=== PATIENT | female | born 1985 | race Caucasian/White ===

== ENCOUNTER → 2017-11-11 12:10 | Outpatient (CLI) | payer BC, SELFPAY ==
[2017-11-11 13:11] LABS: Absolute Lymphocyte Count 1.84 X10^3/ul (0.83-4.51); Absolute Neutrophil Count 4.4 X10^3/uL (2.0-7.7); Basophil# 0.02 X10^3/uL; Basophil% 0.3 % (0-1); Eosinophil# 0.27 X10^3/uL; Eosinophils% 3.9 % (0-5); Hematocrit 38.4 % (37-47); Hemoglobin 12.7 g/dl (12.0-15.0); Lymphocyte # 1.84 X10^3/ul (4.0); Lymphocyte % 26.4 % (19-41); Mean Corp Hgb Conc 33.1 g/gl (32-36); Mean Corpuscular Hgb 28.7 pg (27.0-32.0); Mean Corpuscular Volume 86.9 fL (81-99); Mean Platelet Vol. 8.9 fl (6.2-12.0); Monocyte# 0.45 X10^3/uL; Monocyte% 6.4 % (0-10); Neutrophil # 4.39 X10^3/uL (2.7-7.7); Neutrophil % 62.9 % (47-70); Platelet Count 310 K/mm3 (150-450); RBC Distribution Width CV 12.9 % (11.6-14.6); RBC Distribution Width SD 41.4 fl (35.1-43.9); Red Blood Count 4.42 M/mm3 (4.2-5.4)
[2017-11-11 13:12] LABS: POSITIVE COUNT NO; POSITIVE DIFFERENTIAL NO; POSITIVE MORPHOLOGY NO
[2017-11-11 13:40] LABS: Glucose Challenge Gest 1H 50g 98 mg/dL (70-140)
[2017-11-11 14:22] LABS: HIV - WCH Non-Reactive (Nonreactive)
[2017-11-11 21:12] LABS: Chlamydia Trachomatis by PCR Negative (Negative); Neisserai gonorrhoeae by PCR Negative (Negative); Probe Check PASS; Sample Adequacy Control PASS; Specimen Processing Control PASS
[2017-11-13 11:20] LABS: HEPATITIS B SURFACE AG Negative (Negative)
[2017-11-18 03:48] LABS: Rapid Plasmin Reagin (RPR) NONREACTIVE (NONREACTIVE)
== END ==
PROVIDERS: Visit Provider Obstetrics & Gynecology
DX: Z34.90 Encounter for supervision of normal pregnancy, unspecified, unspecified trimester (principal)
CPT/HCPCS: 36415; 82950; 85025; 86592; 86703; 86762; 86850; 86900; 87086; 87088; 87340; 87491; 87591

== ENCOUNTER → 2018-03-31 10:47 | Outpatient (CLI) | payer BC, SELFPAY ==
[2018-03-31 10:06] VITALS: BMI 40.3
[2018-03-31 11:25] LABS: Absolute Neutrophil Count 7.9 X10^3/uL (2.0-7.7); Basophil# 0.01 X10^3/uL; Basophil% 0.1 % (0-1); Eosinophil# 0.31 X10^3/uL; Hematocrit 36.3 % (37-47); Hemoglobin 12.4 g/dl (12.0-15.0); Lymphocyte % 15.3 % (19-41); Mean Corp Hgb Conc 34.2 g/gl (32-36); Mean Corpuscular Hgb 30.1 pg (27.0-32.0); Mean Corpuscular Volume 88.1 fL (81-99); Mean Platelet Vol. 9.4 fl (6.2-12.0); Monocyte# 0.62 X10^3/uL; Monocyte% 5.9 % (0-10); Neutrophil # 7.89 X10^3/uL (2.7-7.7); Neutrophil % 75.3 % (47-70); Platelet Count 253 K/mm3 (150-450); Red Blood Count 4.12 M/mm3 (4.2-5.4); White Blood Count 10.5 K/mm3 (4.4-11.0)
[2018-03-31 11:28] LABS: POSITIVE COUNT NO; POSITIVE DIFFERENTIAL NO; POSITIVE MORPHOLOGY NO
[2018-03-31 11:41] LABS: Glucose Challenge Gest 1H 50g 122 mg/dL (70-140)
== END ==
PROVIDERS: Referring Provider Obstetrics & Gynecology; Visit Provider Obstetrics & Gynecology
DX: Z34.90 Encounter for supervision of normal pregnancy, unspecified, unspecified trimester (principal)
CPT/HCPCS: 36415; 82950; 85025

== ENCOUNTER → 2018-05-19 17:04 | Outpatient (CLI) | payer BC, SELFPAY ==
[2018-05-19 08:59] VITALS: BMI 40.3
== END ==
PROVIDERS: Referring Provider Obstetrics & Gynecology; Visit Provider Obstetrics & Gynecology
DX: Z34.90 Encounter for supervision of normal pregnancy, unspecified, unspecified trimester (principal)
CPT/HCPCS: 87081

== ENCOUNTER 2018-06-06 15:55 | Outpatient (CLI) | payer BC, SELFPAY ==
[2018-06-01 13:01] VITALS: BMI 44.4
[2018-06-06 16:32] VITALS: BMI 45.0
--- NOTE | 2018-06-06 16:49 | OB.TRI.HP_ITS ---
- Problem List (1) Decreased movements, third trimester, fetus 1 Status: Acute History of Present Illness Date of Service: 06/06/18 Reason For Visit: DECREASED MOVEMENT History of Present Illness: decreased movement Allergies acetaminophen [From Percocet] Allergy (Verified 06/01/18 13:01) Other adhesive tape Allergy (Verified 06/01/18 13:01) Rash amoxicillin trihydrate [From Augmentin] Allergy (Verified 06/01/18 13:01) Nausea oxycodone HCl [From Percocet] Allergy (Verified 06/01/18 13:01) Other potassium clavulanate [From Augmentin] Allergy (Verified 06/01/18 13:01) Nausea - Pertinent Past Medical History Medical History: Past Medical History (Last Reviewed 06/01/18 @ 13:01 by Rosario Malik) History of [place] disease History of depression History of hypothyroidism History of insomnia History of irritable bowel syndrome Surgical History: Past Surgical History (Last Reviewed 06/01/18 @ 13:01 by Rosario Malik) Deviated septum History of surgical removal of pituitary gland NST - FHR Rate Baby A Baseline: 130 Variability:: Moderate Accelerations:: 15 x 15 Decelerations:: None NST Reactive:: Yes FHR Category:: Category I Uterine Activity:: no regular Impression/Plan decreased movement reactive nst dc home kick counts
== END 2018-06-06 17:10 | disposition home or self-care (01) ==
LOC: WPOUT 16:23 → WP 16:23
PROVIDERS: Referring Provider Obstetrics & Gynecology; Visit Provider Obstetrics & Gynecology
DX: O36.8130 Decreased fetal movements, third trimester, not applicable or unspecified (principal); Z3A.00 Weeks of gestation of pregnancy not specified
CPT/HCPCS: 59025; 59050; 99218; G0378

== ENCOUNTER 2018-06-14 22:34 | Inpatient (IN) | payer BC, SELFPAY ==
[2018-06-09 10:26] VITALS: BMI 45.1
[2018-06-14 20:18] VITALS: BMI 45.0
[2018-06-14] MEDS: 0.9% Saline Lock 10 ML Syringe IV (23:20)
[2018-06-14 23:47] LABS: Absolute Lymphocyte Count 2.47 X10^3/ul (0.83-4.51); Absolute Neutrophil Count 7.9 X10^3/uL (2.0-7.7); Basophil# 0.01 X10^3/uL; Basophil% 0.1 % (0-1); Eosinophil# 0.31 X10^3/uL; Eosinophils% 2.7 % (0-5); Hematocrit 38.6 % (37-47); Hemoglobin 13.2 g/dl (12.0-15.0); Lymphocyte # 2.47 X10^3/ul (4.0); Lymphocyte % 21.3 % (19-41); Mean Corp Hgb Conc 34.2 g/gl (32-36); Mean Corpuscular Hgb 29.5 pg (27.0-32.0); Mean Corpuscular Volume 86.2 fL (81-99); Mean Platelet Vol. 10.1 fl (6.2-12.0); Monocyte# 0.83 X10^3/uL; Monocyte% 7.2 % (0-10); Neutrophil # 7.92 X10^3/uL (2.7-7.7); Neutrophil % 68.3 % (47-70); Platelet Count 242 K/mm3 (150-450); RBC Distribution Width CV 13.1 % (11.6-14.6); RBC Distribution Width SD 41.2 fl (35.1-43.9); Red Blood Count 4.48 M/mm3 (4.2-5.4); White Blood Count 11.6 K/mm3 (4.4-11.0)
[2018-06-14 23:49] LABS: POSITIVE COUNT NO; POSITIVE DIFFERENTIAL NO; POSITIVE MORPHOLOGY NO
[2018-06-15] MEDS: Lactated Ringers 1,000 ML 50 ML IV ×2 (00:29→06:38)
--- NOTE | 2018-06-15 00:39 | HP.PCM_ITS ---
- Problem List (1) Active labor at term Status: Acute (2) Obesity affecting Status: Acute Qualifiers: Comment: 1 tm glucola nl, healthy weight gain encouraged, weekly nsts after 32 weeks growth us q 4 weeks (3) Status: Acute Qualifiers: Comment: genetic, carrier, and NTD screening declined. anatomy scan reviewed. 05/19/18 Lateral ventricles appeared mildly enlarged. Repeat in 1 week. FU US show left lateral ventricle is in the upper limits of normal (4) Supervision of normal Status: Acute Qualifiers: Comment: PRR MARGO 06/16/18 Girl PC Brenna Sara (5) Depression affecting , antepartum Status: Acute Comment: zoloft (6) Hypothyroid in , antepartum Status: Acute Comment: managed by endocrine History Date of Admission: 06/15/18 Final MARGO: 06/16/18 Gestational age: 39 Weeks and 6 Days History of this : This is a 33 year-old, , at 39 weeks gestational age presents IAL 4 cm dilated. she has had some bloody show but no lof admits good fm. she has had a complicated by obesity but otherwise normal. Medical History: Medical History (Last Reviewed 06/09/18 @ 10:26 by Neva Santamaria) History of [place] disease Z86.39 History of depression Z86.59 History of hypothyroidism Z86.39 History of insomnia Z87.898 History of irritable bowel syndrome Z87.19 Surgical History: Surgical History (Last Reviewed 06/09/18 @ 10:26 by Neva Santamaria) Deviated septum J34.2 History of surgical removal of pituitary gland E89.3 Allergies acetaminophen [From Percocet] Allergy (Verified 06/14/18 20:19) Other adhesive tape Allergy (Verified 06/14/18 20:19) Rash amoxicillin trihydrate [From Augmentin] Allergy (Verified 06/14/18 20:19) Nausea oxycodone HCl [From Percocet] Allergy (Verified 06/14/18 20:19) Other potassium clavulanate [From Augmentin] Allergy (Verified 06/14/18 20:19) Nausea Home Medications: Home Medications Vit No.130/Iron/Folic [ Vitamins] 1 ea PO DAILY 04/25/15 sertraline 100 mg tablet 100 mg PO QDAY 03/07/17 levothyroxine 75 mcg tablet 100 mcg PO DAILY tab 11/11/17 Smoking Status: Never smoker Alcohol: None Number of Fetus(es): 1 Heart Tracin moderate variability reactive no decelerations category I tracing, then baseline change to 165-170 moderate variability cat II Temelec: regular History Past Pregnancies: Past Pregnancies previous term uncomplicated Labs: Mom's Labs & Results 06/14/18 06/14/18 23:20 23:20 WBC 11.6 H RBC 4.48 Hgb 13.2 Hct 38.6 MCV 86.2 MCH 29.5 MCHC 34.2 RDW 13.1 RDW Differential 41.2 Plt Count 242 MPV 10.1 Immature Gran % (Auto) 0.400 Neut % (Auto) 68.3 Lymph % (Auto) 21.3 Coal % (Auto) 7.2 Eos % (Auto) 2.7 Baso % (Auto) 0.1 Absolute Neuts (auto) 7.9 H Absolute Lymphs (auto) 2.47 Total Counted Not Reportable Blood Type Pending Antibody Screen Pending Course Did the patient receive Yes care? Labs RH: POSITIVE RPR/VDRL/Syphilis Nonreactive Rubella status Immune HbSAg Negative Date Done: 11/11/17 Chlamydia Negative HIV/AIDS Non-Reactive Group B Strep: Negative Current Obstetrical History Gestational Diabetes No Incompetent Cervix No Infertility No IUGR No Macrosomia No Hypertension/Pre-eclampsia No Placenta Previa/Abruption No PTL/PROM No Uterine anomaly No Oligohydramnios No Polyhydramnios No Multiple gestation No Past Medical History Asthma No Diabetes No Hypertension No Heart disease No Mitral valve prolapse No Neurologic/Seizure disorder/ Yes: hx of migraines Migraines Kidney disease Yes: hx of kidney stones Liver disease No Varicosities No Clotting disorders/Hx of DVT No Thyroid Dysfunction Yes: hypothroid, on synthroid Other medical diseases Yes: cushings in remission, pituitary adenoma excision in 2009 Psychiatric disorders Yes: depression and anxiety Major trauma No Abnormal PAP smear No Sleep apnea No Mammogram in the last 2 years No Enter DETAILS of medical IBS history Medications Taken During Reason for taking medication [ taken until 18 weeks for nausea zofran] Social History Marital Status: Alleged father De Armijo Hx Smoking No Smoking Status Never smoker How long have you used n/a substances (years)? What date/time did you last n/a use any of the above? Have you had any previous n/a inpatient or outpatient treatment Expected Infant Delivery Method: Spontaneous Vaginal Review of Systems Constitutional: Denies: Fever, Malaise Eyes: Denies: Blurred vision, Vision Change HEENT: Denies: Head Aches, Visual Changes Cardiovascular: Denies: Chest Pain, Palpitations Respiratory: Denies: Cough, Shortness of Breath, Wheezing Gastrointestinal: Denies: Abdominal Pain, Diarrhea, Nausea, Vomiting Genitourinary: Denies: Dysuria, Hematuria Musculoskeletal: Denies: Joint Pain, Muscle pain Skin: Denies: Lesions, Rash Neurological: Denies: Blurred vision, Focal weakness, Headaches Psychiatric: Denies: Anxiety, Depression Endocrine: Denies: Heat/ Cold Intolerance Hematologic/ Lymphatic: Denies: Easy Bruising, Easy Bleeding Physical Exam General: Alert, Cooperative, No apparent distress HEENT: Atraumatic, Normocephalic. Negative for: Thyromegaly, Lymphadenopathy Cardiovascular: Regular rate Lungs: Normal air movement Abdomen: Soft, Non Tender, Gravid Neurological: Deep Tendon Reflexes 2+/4 and Symmetrical, Neuro grossly intact. Negative for: Clonus CLEANER INDUSTRIAL: Normal external genitalia. Negative for: Vulvar lesions Estimated gestational size: Appropriate for gestational size Presentation: Cephalic Cervix Dilation (cm): 4 Station: -2 Effacement (%): 70 Assessment/Plan All Active Problems (Last Reviewed 06/09/18 @ 10:26 by Neva Santamaria) Decreased movements, third trimester, fetus 1 (Acute) Active labor at term (Acute) Obesity affecting (Acute) (Acute) Supervision of normal (Acute) Depression affecting , antepartum (Acute) Hypothyroid in , antepartum (Acute) BMI greater than 40 (Resolved) Low lying placenta nos or without hemorrhage, second trimester (Resolved) This is a 33 year-old, at 39 weeks gestational age presents IAL Patient presents IAL, plan expectant management for , pitocin PRN. arom clear fluid. Pain management: minimal intervention. GBS negative. Management of any complications: none I have reviewed the [facility] and made any clinically relevant updates.
[2018-06-15] MEDS: Nalbuphine 10 MG/ML Ampul IV (02:49)
[2018-06-15] MEDS: Oxytocin 30 units/NS 500 ml 30 UNITS/500 ML IV.SOLN IV (04:10)
[2018-06-15] MEDS: Amnioinfusion- 0.9% NS 1,000 ML IV.SOLN. 1000 ML INTRA-UTER (05:58)
[2018-06-15] MEDS: 0.9% Saline Lock 10 ML Syringe IV (06:00)
[2018-06-15] MEDS: Ondansetron 4 MG/2 ML Vial IV (07:18)
[2018-06-15] MEDS: Oxytocin 30 units/NS 500 ml 30 UNITS/500 ML IV.SOLN 334 UNITS IV (07:44)
[2018-06-15] MEDS: Oxytocin 30 units/NS 500 ml 30 UNITS/500 ML IV.SOLN 167 UNITS IV (08:15)
--- NOTE | 2018-06-15 09:16 | NURSING ---
QS void. Missed hat.
[2018-06-15] MEDS: Acetaminophen 325 MG Tablet PO (09:17)
[2018-06-15 10:00] VITALS: BP 108/55; PULSE 93; RESP 20; TEMP 36.6
--- NOTE | 2018-06-15 10:49 | PCM.OPRPT ---
Problem List (1) Active labor at term Status: Acute (2) Obesity affecting Status: Acute Qualifiers: Comment: 1 tm glucola nl, healthy weight gain encouraged, weekly nsts after 32 weeks growth us q 4 weeks (3) Status: Acute Qualifiers: Comment: genetic, carrier, and NTD screening declined. anatomy scan reviewed. 05/19/18 Lateral ventricles appeared mildly enlarged. Repeat in 1 week. FU US show left lateral ventricle is in the upper limits of normal (4) Supervision of normal Status: Acute Qualifiers: Comment: PRR MARGO 06/16/18 Girl PC Brenna Sara (5) Depression affecting , antepartum Status: Acute Comment: zoloft (6) Hypothyroid in , antepartum Status: Acute Comment: managed by endocrine Vaginal Delivery Maternal Presentation: Active Labor ial 39w6d Final MARGO: 06/16/18 Gestational age: 39 Weeks and 6 Days Date of Procedure: 06/15/18 Pre-Operative Diagnosis: ial Post-Operative Diagnosis: same Surgery/ Procedure Performed: Spontaneous Vaginal Delivery Type of Anesthesia: Local with 1% lidocaine Description of Procedure: Patient began pushing and delivered the head in the KAVON presentation. The head was delivered atraumatically and a loose nuchal cord ?1 was identified and easily reduced over the infant's head. The anterior and posterior shoulders delivered without complication followed by the rest of the infant and the infant was placed on the maternal abdomen. Delayed cord clamping was employed for approximately 60 seconds. Cord was clamped and cut and gentle traction was applied to the cord and the placenta delivered spontaneously immediately following it was noted to be intact with three-vessel cord. The perineum and vagina were inspected and noted to have a second-degree laceration on the perineum which was repaired in the usual fashion after injecting with 1% lidocaine. EBL was 400 cc. Patient and tolerated delivery well. Presentation: KAVON Placental Delivery Description: Spontaneous Placenta Disposition: [facility] Cord Vessel Description: 3 Vessels Cord Entanglement: Around neck x 1, loose Estimated Blood Loss: 400 A gender: Female Episiotomy Description: None Laceration: Perineal Extension/lac, 2nd degree Medications given after delivery: IV Pitocin Complications: None
[2018-06-15 12:30] VITALS: BP 108/60; PULSE 85; RESP 16; TEMP 36.6
[2018-06-15] MEDS: Naproxen 250 MG Tablet 500 MG PO (12:51)
[2018-06-15 16:30] VITALS: BP 123/69; PULSE 68; RESP 18; TEMP 36.3
[2018-06-15 20:30] VITALS: BP 116/68; PULSE 86; RESP 18; TEMP 36.5
[2018-06-15] MEDS: Senna/Docusate Sodium 1 Tablet PO (22:09)
[2018-06-15] MEDS: oxyCODONE 5 MG Tablet PO (22:09)
[2018-06-16 00:15] VITALS: BP 113/59; PULSE 79; RESP 18; TEMP 36.4
[2018-06-16 04:20] VITALS: BP 97/54; PULSE 69; RESP 18; TEMP 36.1
[2018-06-16] MEDS: Levothyroxine 100 MCG Tablet PO (07:02)
[2018-06-16 07:50] VITALS: BP 106/65; PULSE 76; RESP 16; TEMP 36.2
--- NOTE | 2018-06-16 08:04 | DCINST_ITS ---
Discharge Diet: No Restrictions Discharge Activity: Return to Normal Activity, May not drive while taking narcotic pain medications., May Shower May resume sexual activity in: 4-6 weeks Call your doctor if your incision/area has: Continuous Slow Oozing, Sudden Increased Bleeding, Increased Pain/ Swelling, Increased Redness, Foul Smelling Discharge Additional Instructions: If you experience any of the following, contact your healthcare provider. * Bleeding that soaks a pad every hour for 2 hours * Fever 100.4 or higher * Unrelieved incision or abdominal pain * Swelling, redness, discharge or bleeding from your incision or episiotomy site * Your incision begins to separate * Problems urinating (including inability to urinate or burning while urinating). * Visual changes * Severe headache * Flu-like symptoms * Pain or redness in one of both of your breasts * Pain, warmth, tenderness or swelling in your legs, especially the calf area * Frequent nausea and vomiting * Symptoms of depression or anxiety If you experience any of the following, call 911 or go to the nearest Emergency Room. * Chest pain * Problems breathing * Seizure activity * Partial or complete paralysis of a body part, slurred speech, weakness or drooping of the face, or a sudden inability to walk or hold your balance Allergies/Adverse Reactions: Allergies acetaminophen [From Percocet] Allergy (Verified 06/14/18 20:19) Other adhesive tape Allergy (Verified 06/14/18 20:19) Rash amoxicillin trihydrate [From Augmentin] Allergy (Verified 06/14/18 20:19) Nausea oxycodone HCl [From Percocet] Allergy (Verified 06/14/18 20:19) Other potassium clavulanate [From Augmentin] Allergy (Verified 06/14/18 20:19) Nausea Medications to take at Discharge Vit No.130/Iron/Folic [ Vitamins] 1 ea PO DAILY 04/25/15 sertraline 100 mg tablet 100 mg PO QDAY 03/07/17 levothyroxine 75 mcg tablet 100 mcg PO DAILY tab 11/11/17 Naproxen [Naprosyn] 250 - 500 mg PO Q8H PRN PRN #30 tablet 06/16/18 The following prescriptions were given: Naproxen [Naprosyn] 250 - 500 mg PO Q8H PRN PRN #30 tablet PRN Reason: MILD PAIN Please Follow Up With: Selena Carty MD - [phone] When: Call to make an appointment with your doctor in 6 weeks. If you had elevated Blood pressure or 4th degree laceration you will need to be seen in 2 weeks. Primary Care Physician: Oksana Crafword,Out of [Primary Care Provider] - Test Results: Test results from this visit will be discussed in further detail at your follow- up appointment, if applicable.
--- NOTE | 2018-06-16 08:04 | PCM.PN.OB ---
Patient Problems: Active and Suspected Problems (Last Reviewed 06/09/18 @ 10:26 by Neva Santamaria) Active labor at term (Acute) Subjective: doing well no complaints pain controlled no CP SOB N V ambulating well tolerating po lochia moderate, going well - Physical Exam Vital Signs Temp Pulse Resp BP 97.2 F L 76 16 106/65 06/16/18 07:50 06/16/18 07:50 06/16/18 07:50 06/16/18 07:50 Oxygen Delivery Method Room Air Weight: 262 lb 5.601 oz Body Mass Index (BMI) 45.0 Intake and Output for Last 24 Hours 06/14/18 06/15/18 06/16/18 23:59 23:59 23:59 Intake Total 1500 / 1500 Output Total 750 / 750 Balance 750 / 750 Medical Necessity - Tobacco Use Smoking Status: Never smoker Assessment/Plan All Active Problems (Last Reviewed 06/09/18 @ 10:26 by Neva Santamaria) Decreased movements, third trimester, fetus 1 (Acute) Active labor at term (Acute) Obesity affecting (Acute) (Acute) Supervision of normal (Acute) Depression affecting , antepartum (Acute) Hypothyroid in , antepartum (Acute) BMI greater than 40 (Resolved) Low lying placenta nos or without hemorrhage, second trimester (Resolved) s/p PPD # 1 1. routine post delivery care 2. breast feeding- support given 3. rh positive 4. rubella immune
[2018-06-16] MEDS: Sertraline 100 MG Tablet PO (11:07)
[2018-06-16] MEDS: Prenatal Vits Tablet 1 TABLET PO (11:07)
[2018-06-16 15:39] VITALS: BP 106/58; PULSE 74; RESP 18; TEMP 36.6
== END 2018-06-16 16:50 | disposition home or self-care (01) | DRG 807 ==
LOC: WPOUT 22:47 → WP 22:47
PROVIDERS: Admitting Provider Obstetrics & Gynecology; Visit Provider Obstetrics & Gynecology
DX: O70.1 Second degree perineal laceration during delivery (principal); Z37.0 Single live birth; O99.214 Obesity complicating childbirth; E66.9 Obesity, unspecified; O69.81X0 Labor and delivery complicated by cord around neck, without compression, not applicable or unspecified; O99.284 Endocrine, nutritional and metabolic diseases complicating childbirth; E03.9 Hypothyroidism, unspecified; Z3A.39 39 weeks gestation of pregnancy
CPT/HCPCS: 59025; 59050; 85025; 86850; 86900; 99218; J7030; J7120; A4216; G0378; J2405

== ENCOUNTER → 2018-09-18 18:23 | Outpatient (CLI) | payer BC, SELFPAY ==
[2018-09-05 15:50] VITALS: BMI 41.7
--- NOTE | 2018-09-18 18:29 | US_ITS ---
HISTORY: IUD CHECK AND PELVIC PAIN EXAMINATION: US Pelvis Non-OB Complete TECHNIQUE: Transabdominal and transvaginal (for optimal evaluation of the adnexa) pelvic ultrasound was performed. Grayscale, spectral waveform, and color flow Doppler evaluation of the adnexa. COMPARISON: None FINDINGS: UTERUS: anteverted The uterus measures 10.0 x 5.9 x 3.4 cm. There is no uterine mass. The endometrial stripe measures 0.9 cm in AP diameter which is within normal limits. IUD appears appropriately placed. Cervical nabothian cysts incidentally noted. RIGHT OVARY: 3.9 x 2.3 x 2.2 cm, contains a physiologic 1.9 cm cyst. Non-enlarged, normal echogenicity. There is normal arterial inflow and venous outflow present in the right ovary. LEFT OVARY: 5.1 x 3.9 x 2.8 cm, contains a physiologic 3.9 x 2.9 x 2.1 cm diameter cyst.. Non-enlarged, normal echogenicity. There is normal arterial inflow and venous outflow present in the left ovary. FREE FLUID: None. US/Pelvic (Non ) IMPRESSION: IUD appears appropriately placed. Physiologic ovarian cysts, larger on the left. at 2204 Reported and signed by: Sukumar Maciel MD Electronically Signed: Sukumar Maciel, at 22:03 EDT Tel , Service support ,
--- NOTE | 2018-09-18 18:38 | US_ITS ---
HISTORY: IUD CHECK AND PELVIC PAIN EXAMINATION: US Pelvis Non-OB Complete TECHNIQUE: Transabdominal and transvaginal (for optimal evaluation of the adnexa) pelvic ultrasound was performed. Grayscale, spectral waveform, and color flow Doppler evaluation of the adnexa. COMPARISON: None FINDINGS: UTERUS: anteverted The uterus measures 10.0 x 5.9 x 3.4 cm. There is no uterine mass. The endometrial stripe measures 0.9 cm in AP diameter which is within normal limits. IUD appears appropriately placed. Cervical nabothian cysts incidentally noted. RIGHT OVARY: 3.9 x 2.3 x 2.2 cm, contains a physiologic 1.9 cm cyst. Non-enlarged, normal echogenicity. There is normal arterial inflow and venous outflow present in the right ovary. LEFT OVARY: 5.1 x 3.9 x 2.8 cm, contains a physiologic 3.9 x 2.9 x 2.1 cm diameter cyst.. Non-enlarged, normal echogenicity. There is normal arterial inflow and venous outflow present in the left ovary. FREE FLUID: None. US/Transvaginal Non- IMPRESSION: IUD appears appropriately placed. Physiologic ovarian cysts, larger on the left. at 2204 Reported and signed by: Sukumar Maciel MD Electronically Signed: Sukumar Maciel, at 22:03 EDT Tel , Service support ,
== END ==
PROVIDERS: Referring Provider Obstetrics & Gynecology; Visit Provider Obstetrics & Gynecology
DX: Z30.431 Encounter for routine checking of intrauterine contraceptive device (principal)
CPT/HCPCS: 76830; 76856; 93976

== ENCOUNTER 2018-10-05 09:11 | Day surgery (SDC) | payer BC, SELFPAY ==
[2018-07-28 11:53] VITALS: BMI 45.0
[2018-09-05 15:50] VITALS: BMI 41.7
--- NOTE | 2018-09-20 03:13 | HP.PCM_ITS ---
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 Required: No Is patient in pain?: No Allergies acetaminophen [From Percocet] Allergy (Verified 09/05/18 15:51) Other adhesive tape Allergy (Verified 09/05/18 15:51) Rash amoxicillin trihydrate [From Augmentin] Allergy (Verified 09/05/18 15:51) Nausea oxycodone HCl [From Percocet] Allergy (Verified 09/05/18 15:51) Other potassium clavulanate [From Augmentin] Allergy (Verified 09/05/18 15:51) Nausea Medications Vit No.130/Iron/Folic [ Vitamins] 1 ea PO DAILY 04/25/15 [History Confirmed 09/05/18] sertraline 100 mg tablet 100 mg PO QDAY 03/07/17 [History Confirmed 09/05/18] levothyroxine 75 mcg tablet 100 mcg PO DAILY tab 11/11/17 [History Confirmed 09/05/18] Is last menstrual period known: No Post menopausal: No Patient : No : No PFSH PFSH Medical History (Updated 07/28/18 @ 12:11 by Selena Carty MD) History of [place] disease (Acute) History of depression (Acute) History of hypothyroidism (Acute) History of insomnia (Acute) History of irritable bowel syndrome (Acute) Surgical History (Updated 06/15/18 @ 10:50 by Selena Carty MD) Deviated septum (Acute) History of surgical removal of pituitary gland (Acute) Family History (Updated 03/07/17 @ 11:02 by Neva Santamaria) Mother Sjoegren syndrome Osteoarthritis Hypertension Fibromyalgia Arthritis Social History (Updated 09/06/18 @ 07:15 by Selena Carty MD) current occupational status: employed current occupation: [employer] Smoking Status: Never smoker alcohol intake: current alcohol intake frequency: holidays/special occasions only substance use type: does not use caffeine: Yes Type: carbonated beverages Number of servings: 1 what type of physical activity do you participate in: none seatbelt use: always do you feel safe at home: Yes 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 Date Name GA/Weeks Outcome Route Bth Weight Infant Gen Labor Lgth Anesthesia Del Locatn Provider FOB Unknown 2015 Brenna 40 live - full term NS VD female wch SM 06/15/18 Eliane 39 live - full term NS VD Female epidural [facility] Delivery Date: On 11/11/17 @ 11:43 Selena Carty velamentous insertion of the cord Delivery Date: 06/15/18 No notes to display HPI IUD INSERTION: Details: BERTHA PADILLA is a 33 year old who presents for sterilization procedure Female Reproductive History Questions: Metorrhagia: No ROS Const Constitutional: Reports system reviewed and no additional complaints, except as docu; denies chills, fever(s), weight gain or weight loss GI GI: Reports as per HPI; denies abdominal pain, bloating, constipation, cramping, nausea or vomiting : Reports as per HPI; denies urinary frequency, urinary incontinence, urinary urgency, vaginal discharge or vaginal dryness Exam Const General: cooperative, healthy appearing, comfortable, well developed Orientation: alert HENMT Head: normal to inspection Resp Effort & Inspection: normal respiratory effort GI Inspection: normal to inspection, non-distended Palpation: soft, no hepatosplenomegaly, no guarding External Female Exam: normal external appearance, normal appearance of the urethra Urethra: normal appearance of the urethra Speculum Exam - Vagina: normal appearance of the vagina, normal vaginal discharge, no lesions Speculum Exam - Cervix: normal appearance of the cervix, nontender Bimanual Exam- Vagina & Uterus: normal bimanual exam, uterine size normal, uterine shape normal, No cervical tenderness, uterine mobility normal, uterine consistency normal, uterus non-tender Bimanual Exam- Adnexa, other: normal adnexae, no adnexal masses Office Meds levonorgestrel Performing Provider: Selena Carty MD Administered by: Neva Santaamria on 09/05/18 15:55 Dose Route Admin Location Lot Number Expiration Date [facility] 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 Orders Orders: Liletta IUD 09/05/18 Z97.5 Selena Carty MD POC Urine 09/05/18 N92.6 Selena Carty MD Medications Discontinued: levonorgestrel Discontinued Reason: Office Medication has been Documented as given 1 insert intrauterine ONCE 1 ea 0RF Z97.5 Neva Santamaria UPDATE- I have seen the patient and performed any clinically relevant updates to the history and physical exam. Selena Carty MD
[2018-09-28 10:02] LABS: Hematocrit 43.3 % (37-47); Hemoglobin 14.9 g/dl (12.0-15.0); Mean Corp Hgb Conc 34.4 g/gl (32-36); Mean Corpuscular Hgb 29.4 pg (27.0-32.0); Mean Corpuscular Volume 85.4 fL (81-99); Mean Platelet Vol. 9.2 fl (6.2-12.0); Platelet Count 303 K/mm3 (150-450); RBC Distribution Width CV 13.3 % (11.6-14.6); RBC Distribution Width SD 41.5 fl (35.1-43.9); Red Blood Count 5.07 M/mm3 (4.2-5.4); White Blood Count 5.9 K/mm3 (4.4-11.0)
[2018-09-28 10:04] LABS: Scan Indicated on CBC? Y/N NO
[2018-09-28 10:43] LABS: Thyroid Stim Hormone (TSH) 2.42 uIU/mL (0.358-3.74)
[2018-10-05] VITALS (8 sets, daily range): BP systolic 99–114; BP diastolic 55–82; PULSE 66–72; RESP 16–18; TEMP 36.1–36.5; O2SAT 92–98; BMI 42.0
--- NOTE | 2018-10-05 | FALS_PTH ---
PATIENT: BERTHA PADILLA LOC: [facility] [place] U#:[id number] AGE/SX: 33/F ROOM: RE10/05/[address]: Dr. Selena Carty MD : [id number] BED: DIS: 10/05/2018 SPEC #: [id number] RECD: 10/05/18 14:32 STATUS: ANDREW REUnruly #: [id number] BHARAT: 10/05/18 00:[address]: Selena Carty DEPT: SURGICAL PATHOLOGY RECD BY: Oli Erickson ENTERED: 10/05/18 14:32 SP TYPE: FALL TUBES OTHR DR: Out of [facility] Doctor Tissues: Fallopian tube Procedures: Surgery Specimen Level II HEADER OPERATION: Laparoscopic salpingectomy PRE-OP DIAGNOSIS: Requests sterilization TISSUE SUBMITTED: Bilateral fallopian tubes MICROSCOPIC DIAGNOSIS Right and left fallopian tubes, bilateral salpingectomies: Two complete segments of fallopian tubes. Benign paratubal cysts. AM:guru 10/06/18 MICROSCOPIC DESCRIPTION Slides are reviewed. GROSS DESCRIPTION Received is one container labeled with the patient's name and designated bilateral fallopian tubes. The specimen consists of two fallopian tubes with an average length of 6 cm and has an average diameter of 0.6 cm. Both fallopian tubes have normal fimbriated ends. No mass lesions are identified. Debt Collector sections are submitted in two cassettes as follows: 1 - one fallopian tube, 2 - the other fallopian tube. / AM:guru 10/05/18 TC:5 CPT: 35831 x2
[2018-10-05 09:36] LABS: Internal QC Validated? YES +Cl - CLEAR BKGD; Pregnancy, Urine Negative Negative
[2018-10-05] MEDS: Bupivacaine 0.25% 30 ML Vial (11:02)
--- NOTE | 2018-10-05 11:05 | OP.PCM_ITS ---
Problem List (1) Sterilization Status: Acute Report of Operation Date of Procedure: 10/05/18 Pre-Operative Diagnosis: sterilization Post-Operative Diagnosis: same Surgery/Procedure Performed:: Laparoscopic bilateral salpingectomy Description of Surgical Findings:: Normal uterus tubes and ovaries Type of Anesthesia:: General Special Medications: none Specimen's removed: Tubes Drains: none Estimated Blood Loss (mL): 25 Fluids Replaced: Crystalloid Description of Procedure: Patient was taken in the operating room and was placed under general anesthesia was prepped and draped in normal sterile fashion in the dorsal lithotomy position. Bladder was drained of clear urine and SCDs were on preoperatively. Uterus was sounded and a uterine manipulator was placed after dilating. Attention was then paid to the abdominal portion of the procedure and the umbilicus was elevated with towel clamps and injected with Marcaine and after a 5 mm incision was made and the Veress needle was entered into the abdomen co nfirmed to be intra-abdominal with a low opening pressure of less than 5 mmHg. Abdomen was insufflated with CO2 gas and a 5 mm optical trocar was placed under direct visualization. A left lower quadrant 5 mm port and a 5 mm port suprapubically replaced under direct visualization. Uterus was well visualized and bilateral fallopian tubes identified and bilateral tubes were elevated and transecting across the mesosalpinx and the attachment to the uterine corpus bilaterally the tubes were removed without complication. Excellent hemostasis was noted. Fallopian tubes were removed through the lower port sites without complication. Liver and upper abdomen were visualized notably within normal limits and no other gross abnormalities were seen in the abdomen. All instruments removed from the abdomen after gas was desufflated. Port sites were closed with 3-0 Monocryl Steri's and op sites were applied. All instruments removed from the vagina and patient was awoken and taken recovery in stable condition. Grafts/Implants Used: none - Complications none
--- NOTE | 2018-10-05 11:07 | DCINST_ITS ---
Discharge Diet: No Restrictions - Increase fluid intake for the next 48 hours. Discharge Activity: Return to Normal Activity, May Drive - when you are no longer taking narcotic pain medications., May Shower, May Take a Tub Bath - in 7 days Additional Activity Instructions:: Ambulate often the next week after surgery. Nothing in the vagina for 5 days. Call your doctor if your incision/area has: Continuous Slow Oozing, Sudden Increased Bleeding, Increased Pain/ Swelling, Increased Redness, Foul Smelling Discharge Call your doctor if you observe: Fever of 101 or Higher Allergies/Adverse Reactions: Allergies adhesive tape Allergy (Verified 09/28/18 09:11) Rash oxycodone HCl [From Percocet] Allergy (Verified 09/28/18 09:11) Itching amoxicillin trihydrate [From Augmentin] Adverse Reaction (Verified 10/04/18 11:24) Nausea potassium clavulanate [From Augmentin] Adverse Reaction (Verified 10/04/18 11:23) Nausea Medications to take at Discharge sertraline 100 mg tablet 100 mg PO QDAY 03/07/17 levothyroxine 75 mcg tablet 125 mcg PO DAILY tab 11/11/17 Calcium Carbonate [Calcium] 600 mg PO DAILY 09/28/18 Cholecalciferol (VIT D3) [Vitamin D] 1,000 unit PO DAILY 09/28/18 Phentermine HCl 37.5 mg PO DAILY 09/28/18 Potassium Chloride [K-Dur] 20 meq PO DAILY 09/28/18 Topiramate 50 mg PO DAILY 09/28/18 Hydrocodone/Acetaminophen [[place] 5-325 Tablet] 1 ea PO Q4H PRN PRN 4 Days #15 tab 10/05/18 Naproxen [Naprosyn] 250 - 500 mg PO Q8H PRN PRN #30 tab 10/05/18 The following prescriptions were given: Naproxen [Naprosyn] 250 - 500 mg PO Q8H PRN PRN #30 tab PRN Reason: MILD PAIN Transmission Status: Received by [facility] Hydrocodone/Acetaminophen [[place] 5-325 Tablet] 1 ea PO Q4H PRN PRN 4 Days #15 tab PRN Reason: Pain Transmission Status: Received by [facility] [id number] Orders to be completed after discharge: ,Urine Time Frame: 10/05/18, Facility: [facility], Location: Laboratory Primary Care Physician: Oksana Doctor,Out of [Primary Care Provider] - Test Results: Test results from this visit will be discussed in further detail at your follow- up appointment, if applicable. Please Follow Up With: Selena Carty MD - [phone]
== END 2018-10-05 13:55 | disposition home or self-care (01) ==
LOC: SDC 09:11 → AC 09:12
PROVIDERS: Anesthesiology; Referring Provider Obstetrics & Gynecology; Visit Provider Obstetrics & Gynecology
PROC: (CPT 58661; principal; 2018-10-05 10:30)
DX: Z30.2 Encounter for sterilization (principal); Z97.5 Presence of (intrauterine) contraceptive device; N83.8 Other noninflammatory disorders of ovary, fallopian tube and broad ligament; Z88.0 Allergy status to penicillin; Z88.5 Allergy status to narcotic agent
CPT/HCPCS: 00840; 58661; 81025; 84443; 85027; 86850; 86900; 88302; J7120; J2405

== ENCOUNTER → 2020-07-10 16:03 | Outpatient (CLI) | payer OTHER, SELFPAY ==
[2020-07-10 11:56] VITALS: BMI 37.2
[2020-07-15 12:37] LABS: HPV APTIMA, High Risk Negative (Negative)
== END ==
PROVIDERS: Referring Provider Obstetrics & Gynecology; Visit Provider Obstetrics & Gynecology
DX: Z12.4 Encounter for screening for malignant neoplasm of cervix (principal)
CPT/HCPCS: 87624; 88175; G0145

== ENCOUNTER → 2021-03-19 08:39 | Outpatient (CLI) | payer OTHER, SELFPAY ==
[2021-03-19 08:51] LABS: Absolute Lymphocyte Count 2.42 X10^3/uL (0.83-4.51); Absolute Neutrophil Count 4.7 X10^3/uL (2.0-7.7); Basophil# 0.04 X10^3/uL; Basophil% 0.5 % (0-1); Eosinophil# 0.48 X10^3/uL; Eosinophils% 5.8 % (0-5); Hematocrit 45.1 % (37-47); Hemoglobin 15.4 g/dL (12.0-15.0); Lymphocyte # 2.42 X10^3/ul (0.83-4.51); Lymphocyte % 29.1 % (19-41); Mean Corp Hgb Conc 34.1 g/dL (32-36); Mean Corpuscular Hgb 29.8 pg (27.0-32.0); Mean Corpuscular Volume 87.4 fL (81-99); Mean Platelet Vol. 8.7 fl (6.2-12.0); Monocyte# 0.56 X10^3/uL; Monocyte% 6.7 % (0-10); NRBC Flagged by Analyzer 0 % (0-5); Neutrophil # 4.73 X10^3/uL (2.7-7.7); Neutrophil % 56.9 % (47-70); Platelet Count 432 K/mm3 (150-450); RBC Distribution Width SD 38.7 fl (35.1-43.9); Red Blood Count 5.16 M/mm3 (4.2-5.4); White Blood Count 8.3 K/mm3 (4.4-11.0)
== END ==
PROVIDERS: Referring Provider Obstetrics & Gynecology; Visit Provider Obstetrics & Gynecology
DX: N93.9 Abnormal uterine and vaginal bleeding, unspecified (principal)
CPT/HCPCS: 36415; 85025

== ENCOUNTER 2021-03-31 13:56 | Outpatient (CLI) | payer OTHER, SELFPAY ==
--- NOTE | 2021-03-31 13:59 | US_ITS ---
STUDY: ULTRASOUND OF THE FEMALE PELVIS - COMPLETE REASON FOR EXAM: Female, 35 years old. Abnormal menses LMP: 03/26/2021. TECHNIQUE: Transabdominal and Transvaginal TECHNICAL QUALITY: Adequate. COMPARISON: Comparison is made with prior examination dated 09/18/2018. FINDINGS: The uterus is anteverted and is in a midline position. The uterus measures 8.6 cm x 4.7 cm x 4.3 cm. There is a Nabothian cyst of the cervix. The endometrium measures 7.4 mm in thickness, and is hyperechoic. There is no demonstrated endometrial mass. There is heterogeneous echotexture of the myometrium although no discrete fibroid is seen. I.U.D. - The patient does not have an I.U.D. The right ovary is visualized. The right ovary measures 3.4 cm x 2.8 cm x 1.6 cm. There is no right ovarian cyst or ovarian mass. There is no visualized right adnexal mass or complex lesion. There is normal arterial and normal venous vascularity. The left ovary is visualized. The left ovary measures 3.4 cm x 2.4 cm x 1.9 cm. There is no left ovarian cyst or ovarian mass. There is no visualized left adnexal mass or complex lesion. There is normal arterial and normal venous vascularity. There is no fluid in the cul-de-sac. The pre void volume of the bladder was 266 ml. US/Transvaginal Non- IMPRESSION: Heterogeneous echotexture of the myometrium although no discrete fibroid is seen at this time. Electronically Signed: Wes Medina MD at 15:04 EST , Service support ,
--- NOTE | 2021-03-31 13:59 | US_ITS ---
STUDY: ULTRASOUND OF THE FEMALE PELVIS - COMPLETE REASON FOR EXAM: Female, 35 years old. Abnormal menses LMP: 03/26/2021. TECHNIQUE: Transabdominal and Transvaginal TECHNICAL QUALITY: Adequate. COMPARISON: Comparison is made with prior examination dated 09/18/2018. FINDINGS: The uterus is anteverted and is in a midline position. The uterus measures 8.6 cm x 4.7 cm x 4.3 cm. There is a Nabothian cyst of the cervix. The endometrium measures 7.4 mm in thickness, and is hyperechoic. There is no demonstrated endometrial mass. There is heterogeneous echotexture of the myometrium although no discrete fibroid is seen. I.U.D. - The patient does not have an I.U.D. The right ovary is visualized. The right ovary measures 3.4 cm x 2.8 cm x 1.6 cm. There is no right ovarian cyst or ovarian mass. There is no visualized right adnexal mass or complex lesion. There is normal arterial and normal venous vascularity. The left ovary is visualized. The left ovary measures 3.4 cm x 2.4 cm x 1.9 cm. There is no left ovarian cyst or ovarian mass. There is no visualized left adnexal mass or complex lesion. There is normal arterial and normal venous vascularity. There is no fluid in the cul-de-sac. The pre void volume of the bladder was 266 ml. US/Pelvic (Non ) IMPRESSION: Heterogeneous echotexture of the myometrium although no discrete fibroid is seen at this time. Electronically Signed: Wes Medina MD at 15:04 EST , Service support ,
== END 2021-03-31 23:59 | disposition short-term general hospital (02) ==
LOC: OPUS 13:57
PROVIDERS: Referring Provider Obstetrics & Gynecology; Visit Provider Obstetrics & Gynecology
DX: N93.9 Abnormal uterine and vaginal bleeding, unspecified (principal)
CPT/HCPCS: 76830; 76856

== ENCOUNTER → 2022-06-22 | Outpatient (CLI) | payer BC, SELFPAY ==
--- NOTE | 2022-06-22 | EMB_PTH ---
PATIENT: BERTHA PADILLA LOC: [facility] U#:[id number] AGE/SX: 37/F ROOM: RE06/22/[address]: Dr. Selena Carty MD : 1985 BED: DIS: 06/22/2022 SPEC #: [id number] RECD: 06/22/22 15:59 STATUS: ANDREW BRANNON #: [id number] BHARAT: 06/22/22 00:[address]: Selena Carty DEPT: SURGICAL PATHOLOGY RECD BY: Oli Erickson Tissues: Endometrium, NOS Procedures: Surgery Specimen Level IV HEADER OPERATION: Endometrial biopsy PRE-OP DIAGNOSIS: Abnormal uterine bleeding TISSUE SUBMITTED: Endometrial lining MICROSCOPIC DIAGNOSIS Endometrium, biopsy: Secretory endometrium. AM:guru 06/24/2022 MICROSCOPIC DESCRIPTION Slides are reviewed. GROSS DESCRIPTION Received is one container labeled with the patient's name and not further designated. The specimen consists of multiple irregular fragments of pink soft tissue that in aggregate measure 3.0 x 2.5 x 0.2 cm. The specimen is totally submitted in one cassette. / EFREN:guru 06/23/2022 TC:5 CPT: 09665
== END | disposition home or self-care (01) ==
PROVIDERS: Visit Provider Obstetrics & Gynecology
DX: N93.9 Abnormal uterine and vaginal bleeding, unspecified (principal)
CPT/HCPCS: 88305

== ENCOUNTER → 2022-10-30 | Outpatient (CLI) | payer BC, SELFPAY ==
--- NOTE | 2022-10-30 10:03 | US_ITS ---
INDICATION: AUB EXAMINATION: Ultrasound US Pelvis Non OB Complete With Transvaginal Imaging TECHNIQUE: Transabdominal and transvaginal pelvic ultrasound was performed. Grayscale, spectral waveform, and color flow Doppler evaluation of the adnexa. COMPARISON: March 31, 2021 FINDINGS: UTERUS: The uterus measures 8.3 x 5.0 x 6.5 cm. There is no uterine mass. The myometrium is heterogenous. The endometrial stripe measures 8.7 mm in AP diameter which is within normal limits. RIGHT OVARY: 3.7 x 2.5 x 2.7 cm. There is a simple appearing 1.9 x 2.1 x 1.3 cm right ovarian cyst. Non-enlarged, normal echogenicity. There is normal arterial inflow and venous outflow present in the right ovary. LEFT OVARY: 2.7 x 1.5 x 2.5 cm. Non-enlarged, normal echogenicity. There is normal arterial inflow and venous outflow present in the left ovary. FREE FLUID: There is minimal free fluid. US/Pelvic w/ Transvaginal IMPRESSION: Heterogenous myometrium may be secondary to adenomyosis. Simple 1.9 x 2.1 x 1.3 cm right ovarian cyst. Electronically Signed: Mirta Penaloza MD at 20:51 EDT ,
== END | disposition home or self-care (01) ==
LOC: US 10:02
PROVIDERS: Referring Provider Obstetrics & Gynecology; Visit Provider Obstetrics & Gynecology
DX: N93.9 Abnormal uterine and vaginal bleeding, unspecified (principal); N80.00 Endometriosis of the uterus, unspecified
CPT/HCPCS: 76830; 76856

== ENCOUNTER → 2022-11-01 | Outpatient (CLI) | payer BC, SELFPAY ==
[2022-11-01 12:32] LABS: Absolute Lymphocyte Count 1.55 X10^3/uL (0.83-4.51); Absolute Neutrophil Count 2.6 X10^3/uL (2.0-7.7); Basophil# 0.03 X10^3/uL; Basophil% 0.6 % (0-1); Eosinophils% 4.2 % (0-5); Hematocrit 36.9 % (37-47); Hemoglobin 12.6 g/dL (12.0-15.0); Lymphocyte # 1.55 X10^3/ul (0.83-4.51); Lymphocyte % 32.8 % (19-41); Mean Corp Hgb Conc 34.1 g/dL (32-36); Mean Corpuscular Volume 90.9 fL (81-99); Mean Platelet Vol. 8.7 fl (6.2-12.0); Monocyte# 0.32 X10^3/uL; Monocyte% 6.8 % (0-10); NRBC Flagged by Analyzer 0 % (0-5); Neutrophil # 2.61 X10^3/uL (2.7-7.7); Neutrophil % 55.4 % (47-70); Platelet Count 363 K/mm3 (150-450); RBC Distribution Width CV 12.1 % (11.6-14.6); RBC Distribution Width SD 40.1 fl (35.1-43.9); Red Blood Count 4.06 M/mm3 (4.2-5.4); White Blood Count 4.7 K/mm3 (4.4-11.0)
== END | disposition home or self-care (01) ==
LOC: PAVLAB 11:53
PROVIDERS: PCP Family Medicine; Referring Provider Nurse Practitioner Women's Health; Visit Provider Nurse Practitioner Women's Health
DX: N93.9 Abnormal uterine and vaginal bleeding, unspecified (principal); N80.00 Endometriosis of the uterus, unspecified
CPT/HCPCS: 36415; 85025

== ENCOUNTER 2022-11-23 09:31 | Day surgery (SDC) | payer BC, SELFPAY ==
--- NOTE | 2022-11-21 11:08 | HP.PCM_ITS ---
HPI - General General Date of Admission: 11/23/22 HPI Narrative BERTHA PADILLA, is a 37 F who presents for TVH due to AUB due to adenomyosis, 9 cm uterus nl EMB. failed IUD and hormonal therapy. not an ablation candidate due to adenomyosis suspicion. [facility] Medical History (Updated 11/16/22 @ 14:23 by Angelika Gonsalves) Anxiety Arthritis Back pain Easy bruising History of [place] disease History of depression History of hypothyroidism History of insomnia Low iron Migraine headache Non-smoker Wears glasses Home Medications atomoxetine 80 mg capsule (Strattera) 80 mg PO DAILY 07/10/20 [History Last Taken Unknown] levothyroxine 137 mcg tablet (Synthroid) 137 mcg PO DAILY 07/10/20 [History Last Taken Unknown] cholecalciferol (vitamin D3) 25 mcg (1,000 unit) tablet 2,000 unit PO DAILY 06/22/22 [History Last Taken Unknown] dextroamphetamine-amphetamine 20 mg tablet (Adderall) 20 mg PO DAILY 06/22/22 [History Last Taken Unknown] sertraline 100 mg tablet (Zoloft) 100 mg PO QDAY depression 06/22/22 [History Last Taken Unknown] alprazolam 1 mg tablet (Xanax) 1 mg PO TID PRN anxiety #45 tabs 11/01/22 [Rx Last Taken Unknown] semaglutide (weight loss) 0.25 mg/0.5 mL subcutaneous pen injector (Wegovy) 0.25 mg subcut QWEEK 11/01/22 [History Last Taken 11/14/22] norethindrone acetate 5 mg tablet (Aygestin) 5 mg PO DAILY #30 tabs 11/03/22 [Rx Last Taken Unknown] Allergy/AdvReac Type Severity Reaction Status Date / Time adhesive tape Allergy Rash Verified 11/16/22 14:16 oxycodone HCl [From Percocet] Allergy Itching Verified 11/16/22 14:16 amoxicillin trihydrate AdvReac Nausea Verified 11/16/22 14:16 [From Augmentin] potassium clavulanate AdvReac Nausea Verified 11/16/22 14:16 [From Augmentin] Family History Mother Sjoegren syndrome Osteoarthritis Hypertension Fibromyalgia Arthritis Surgical History (Updated 11/16/22 @ 14:23 by Angelika Gonsalves) Deviated septum History of surgical removal of pituitary gland Tubal ligation status Social History current occupational status: employed current occupation: [employer] Smoking Status: Never smoker alcohol intake: current alcohol intake frequency: holidays/special occasions only substance use type: does not use caffeine: Yes Type: carbonated beverages Number of servings: 1 what type of physical activity do you participate in: aerobics frequency: 5-6 times per week seatbelt use: always do you feel safe at home: Yes additional social history: ROS Constitutional Constitutional: Reports systems reviewed and no addt'l complaints, except as documented; Denies as per HPI, change in weight, fatigue, fever(s), malaise, weakness or other Eyes Eyes: Reports systems reviewed and no addt'l complaints, except as documented; Denies as per HPI, change in vision or other ENT HEENT: Reports systems reviewed and no addt'l complaints, except as documented Respiratory/Chest Respiratory/Chest: Reports systems reviewed and no addt'l complaints, except as documented Gastrointestinal Gastrointestinal: Reports systems reviewed and no addt'l complaints, except as documented and as per HPI Genitourinary Genitourinary: Reports as per HPI Musculoskeletal Musculoskeletal: Reports systems reviewed and no addt'l complaints, except as documented Neurologic Neurologic: Reports systems reviewed and no addt'l complaints, except as documented Psychiatric Psychiatric: Reports systems reviewed and no addt'l complaints, except as documented Endocrine Endocrinology: Reports systems reviewed and no addt'l complaints, except as documented Hematologic/Lymphatic Hematologic/Lymphatic: Reports systems reviewed and no addt'l complaints, except as documented Vital Signs Vital Signs Vital Signs: Weight Weight: 191 lb Physical Exam Const alert, oriented x3 and no apparent distress HEENT normocephalic Head and Scalp: atraumatic Eyes EOMs intact bilaterally and conjunctivae normal Neck full ROM, no lymphadenopathy, supple and thyroid normal General: trachea midline Lymph Lymphatic: no lymphadenopathy noted Resp normal respiratory effort, no retractions, no use of accessory muscles and clear to auscultation bilaterally Cardio regular rhythm GI normal to inspection, nondistended, normoactive bowel sounds, soft to palpation, non-distended and no masses Inspection: Negative for abdominal distention Back/Spine no CVA tenderness Extremity normal to inspection Skin no rashes or lesions noted Neuro moves all extremities and deep tendon reflexes 2+ bilaterally Psych mental status grossly normal Assessment & Plan Assessment/Plan (1) Abnormal uterine bleeding due to adenomyosis: PLAN: Plan After discussing the patient's diagnosis and treatment plan options, patient wishes to proceed with surgical management. I have discussed with the patient t he risks, benefits, and alternatives of the procedure which include but are not limited to risks of anesthesia, bleeding, infection, possible damage to bowel, bladder, or surrounding vasculature which could lead to additional surgery to evaluate any complications. Patient agrees to procedure and wishes to proceed. ACOG/uptodate references given for additional information regarding procedure.
[2022-11-23] VITALS (12 sets, daily range): BP systolic 77–110; BP diastolic 45–82; PULSE 59–90; RESP 16–18; TEMP 36.2–37.1; O2SAT 92–100; BMI 32.3
--- NOTE | 2022-11-23 | HYST_PTH ---
PATIENT: BERTHA PADILLA LOC: [facility] U#:[id number] AGE/SX: 37/F ROOM: RE11/23/[address]: Dr. Selena Carty MD : 1985 BED: DIS: 11/23/2022 SPEC #: [id number] RECD: 11/23/22 16:49 STATUS: ANDREW BRANNON #: [id number] BHARAT: 11/23/22 00:[address]: Selena Carty DEPT: SURGICAL PATHOLOGY RECD BY: João Alford ENTERED: 11/24/22 08:34 SP TYPE: HYSTERECT OTHR DR: JOSH ALFONSO MD Tissues: Uterus, NOS Procedures: Surgery Specimen Level V HEADER OPERATION: Total vaginal hysterectomy PRE-OP DIAGNOSIS: Abnormal uterine bleeding due to adenomyosis TISSUE SUBMITTED: Uterus, cervix MICROSCOPIC DIAGNOSIS Uterus, hysterectomy: Cervix - nabothian cysts and mild chronic inflammation. Endometrium - weakly proliferative, mildly disordered endometrium. Myometrium - adenomyosis. AM:guru 11/25/2022 MICROSCOPIC DESCRIPTION Slides are reviewed. GROSS DESCRIPTION Received in fixative is one container labeled with the patient's name and designated uterus, cervix. The specimen consists of a hysterectomy specimen consisting of uterus with cervix weighing 87 gm and measuring 8.5 x 5.5 x 4.0 cm. The serosal surface is gan, glistening. The ectocervical mucosa is unremarkable. The external os is patulous in contour. The endocervical canal measures 3.0 cm in length and the endocervical mucosa is gan, glistening and unremarkable. The triangular endometrial cavity measures 4.5 cm in length and up to 2.0 cm in width. The endometrium is gan, glistening without any mass lesion and measures 0.1 cm in thickness. Sections of the uterine wall do not reveal any mass lesion and measures up to 2.5 cm in thickness. Child Care Aide sections are submitted in six cassettes as follows: 1 - anterior cervix, 2 - posterior cervix, 3 & 4 - anterior uterine wall, 5 & 6 - posterior uterine wall. / EFREN:guru 11/24/2022 TC:5 CPT: 30925
[2022-11-23] MEDS: Lactated Ringers 1,000 ML 40 ML IV (10:46)
[2022-11-23] MEDS: Scopolamine 1mg/72hr Patch 1 PATCH TD (10:49)
[2022-11-23] MEDS: Enoxaparin 40 MG/0.4 ML Syringe SC (10:49)
[2022-11-23] MEDS: Phenazopyridine 95 MG Tablet 190 MG PO (10:50)
[2022-11-23] MEDS: Gabapentin 600 MG Tablet PO (10:51)
[2022-11-23] MEDS: Acetaminophen 500 MG Tablet 1000 MG PO (10:51)
[2022-11-23] MEDS: Celecoxib 200 MG Capsule 400 MG PO (10:51)
[2022-11-23] MEDS: dexAMETHasone 4 MG/ML Vial 8 MG IV (10:52)
[2022-11-23 10:59] LABS: Prothrombin Time (Protime)PT. 13.2 SECONDS (11.7-14.9)
[2022-11-23 11:00] LABS: Partial Thromboplast Time 29.3 Seconds (24.1-36.2)
[2022-11-23 11:06] LABS: AST(SGOT) 14 U/L (15-37); Alanine Aminotransfer ALT/SGPT 16 U/L (13-56); Albumin, Serum 3.5 g/dL (3.2-5.0); Alkaline Phosphatase 50 U/L (45-117); Bilirubin, Direct 0.11 mg/dL (0.00-0.30); Globulin 3.3 g/dL (2.2-4.2); Magnesium 2.1 mg/dL (1.6-2.6); Protein, Total 6.8 g/dL (6.4-8.2)
[2022-11-23 11:24] LABS: Bedside Glucose 78 mg/dL (74-106)
[2022-11-23] MEDS: Cefazolin 2 GM in 0.9% Normal Saline 100 ML IV (12:54)
--- NOTE | 2022-11-23 13:09 | OP.PCM_ITS ---
Problems Associated Problem List Diagnoses (1) Abnormal uterine bleeding due to adenomyosis: (2) History of depression: Report of Operation Date of Procedure: 11/23/22 Pre-Operative Diagnosis: see A/P Post-Operative Diagnosis: same Surgery/Procedure Performed:: TVH Description of Surgical Findings:: boggy uterus with pelvic congestion Surgeon: Selena Carty outreach rep: Jai Fairbanks Type of Anesthesia: General Special Medications: none Specimen's removed: uterus Drains: velásquez Fluids Replaced: crystalloid Description of Procedure: Patient was taken to the operating room and was placed under general anesthesia was prepped and draped in normal sterile fashion in the dorsal lithotomy position. Preoperative antibiotics and SCDs and Velásquez catheter was placed inside the bladder. Weighted speculum was placed in the vagina and the anterior and posterior lip of the cervix was grasped with 2 Laura clamps and circumferentially injected with dilute vasopressin. A circumferential incision was made with a scalpel and the posterior cul-de-sac was entered into sharply and a longneck speculum was placed. The anterior cul-de-sac was also dissected down and entered into sharply and the uterosacral ligaments were clamped cut and suture ligated bilaterally followed by the cardinal ligaments which were Clamped cut and suture ligated bilaterally with 0 Monocryl. The uterus serially descended and progressive bites were taken bilaterally up to the level of the utero-ovarian ligament bilaterally which was clamped transected and double ligated with 0 Monocryl suture and 0 Vicryl free tie. ovaries were well visualized and noted be within normal limits. Excellent hemostasis was noted. Posterior peritoneum was reapproximated with 2-0 Vicryl. The vagina was closed with [id number] 0 Vicryl pop offs including the posterior and anterior peritoneum in the reapproximation. Excellent hemostasis was noted. All instruments removed from the vagina clear urine was noted at the end of the procedure and patient was awoken and taken recovery in stable condition. Grafts/Implants Used: none Complications none Admit VTE Documentation VTE Present on Admission: No VTE Mechan Device Prophylaxis: SCD's VTE Pharm Prophylaxis ordered?: Yes Multi Select Codes Urinary/Genital Urinary/Genital CPT Codes: 65938 TVH <250 gr uterus
[2022-11-23] MEDS: Vasopressin 20 UNITS/ML Vial (13:23)
[2022-11-23] MEDS: Ondansetron 4 MG/2 ML Vial IV (14:16)
--- NOTE | 2022-11-23 14:19 | DCINST_ITS ---
Discharge Instructions Diet Discharge Diet: No restrictions Activity Discharge Activity: Return to Normal Activity, May Not Drive (while taking narcotic pain medications.) and May Shower May resume sexual activity in: 6-8 weeks Dressing / Incision Call your doctor if your incision/area has: Continuous Slow Oozing, Sudden Increased Bleeding, Increased Pain/ Swelling, Increased Redness and Foul Smelling Discharge Call your doctor if you observe: Fever of 101 or Higher, Inability to urinate, Inability to have a bowel movement and Using more than 1 pad per hour Follow Up Care Please Follow Up With: Selena Carty MD Test Results: Test results from this visit will be discussed in further detail at your follow- up appointment, if applicable. Discharge Plan Admission Attending Provider: Selena Carty Primary Care Provider: JOSH ALFONSO Discharge Orders/Prescriptions Prescriptions: New hydrocodone-acetaminophen 5-325 mg tablet 1 tab PO Q6H PRN (Reason: pain) 5 Days Qty: 20 0RF naproxen [naproxen] 500 mg tablet 500 mg PO BID PRN PRN (Reason: Pain) Qty: 30 1RF Continued levothyroxine [Synthroid] 137 mcg tablet 137 mcg PO DAILY atomoxetine [Strattera] 80 mg capsule 80 mg PO DAILY sertraline [Zoloft] 100 mg tablet 100 mg PO QDAY dextroamphetamine-amphetamine [Adderall] 20 mg tablet 20 mg PO DAILY Wegovy 0.25 mg/0.5 mL pen injector 0.25 mg subcut QWEEK Rx Instructions: administer weeks 1 through 4 of therapy alprazolam [Xanax] 1 mg tablet 1 mg PO TID PRN (Reason: anxiety) Qty: 45 0RF cholecalciferol (vitamin D3) 25 mcg (1,000 unit) tablet 2,000 unit PO DAILY norethindrone acetate [Aygestin] 5 mg tablet 5 mg PO DAILY Qty: 30 1RF Referrals / Follow Up: JOSH ALFONSO MD [Primary Care Provider] - Disposition Disposition (needs filled in before D/C Order can be placed): Home, Self Care
[2022-11-23] MEDS: oxyCODONE 5 MG Tablet PO (16:56)
[2022-11-23 17:12] LABS: Hematocrit 33.8 % (37-47); Mean Corp Hgb Conc 32.5 g/dL (32-36); Mean Corpuscular Hgb 29.4 pg (27.0-32.0); Mean Corpuscular Volume 90.4 fL (81-99); Platelet Count 262 K/mm3 (150-450); RBC Distribution Width CV 12.1 % (11.6-14.6); RBC Distribution Width SD 39.9 fl (35.1-43.9); Red Blood Count 3.74 M/mm3 (4.2-5.4); White Blood Count 6.2 K/mm3 (4.4-11.0)
== END 2022-11-23 17:59 | disposition home or self-care (01) ==
LOC: SDC 09:32 → AC 09:34
PROVIDERS: Anesthesiology; PCP Family Medicine; Referring Provider Obstetrics & Gynecology; Visit Provider Obstetrics & Gynecology
PROC: (CPT 58260; principal; 2022-11-23 11:30)
DX: N93.9 Abnormal uterine and vaginal bleeding, unspecified (principal); N80.03 Adenomyosis of the uterus; F41.9 Anxiety disorder, unspecified; R23.3 Spontaneous ecchymoses; Z86.39 Personal history of other endocrine, nutritional and metabolic disease; Z98.51 Tubal ligation status; E03.9 Hypothyroidism, unspecified
CPT/HCPCS: 58260; 00944; 80076; 82962; 83735; 85027; 85610; 85730; 86850; 86900; 86901; 88307; J7120; J2405